=== PATIENT | male | born 1950 | race Caucasian/White ===

== ENCOUNTER 2016-03-28 11:26 | Outpatient (CLI) | payer OTHER ==
--- NOTE | 2016-03-28 13:37 | RAD ---
TWO VIEWS LEFT HIP: Comparison: 01-19-16 Clinical history: Fall two weeks prior with persistent left hip pain. FINDINGS: Ring of osteophytes about the left hip is again seen. No interval acute fracture or dislocation. M oderate left hip joint osteoarthritis is present. There are metallic clips at the midline of the lo w pelvis. IMPRESSION: Stable left hip radiographs, without interval acute fracture or dislocation identified. POS: [facility]
== END 2016-03-28 11:27 | disposition home or self-care (01) ==
LOC: MADRAD 11:26
DX: M25.552 Pain in left hip (principal)

== ENCOUNTER 2016-08-01 10:34 | Outpatient (CLI) | payer MEDICARE, OTHER ==
[2016-08-01 11:16] LABS: Hemoglobin A1c 5.2 % (4.0-6.0)
[2016-08-01 11:17] LABS: #Basophils 0.1 thou/uL (0.0-0.2); #Lymphocytes 2.5 thou/uL (1.20-3.40); #Monocytes 0.6 thou/uL (0.11-0.59); #Neutrophils 6.7 thou/uL (1.40-6.50); %Basophils 1.2 % (0.0-1.0); %Eosinophils 0.1 % (0.0-10.0); %Lymphocytes 25.1 % (21.0-51.0); %Monocytes 6.1 % (0.0-10.0); %Neutrophils 67.5 % (42.0-75.0); Hemoglobin 12.7 g/dL (14.0-18.0); Mean Corpuscular HGB CONC 34.1 g/dL (32.0-36.0); Mean Corpuscular Hemoglobin 31.5 pg (27.0-31.0); Mean Corpuscular Volume 92.5 fl (80.0-94.0); Mean Platelet Volume 8.2 fL (7.4-10.4); Platelet Count 209 thou/uL (130-400); RBC Distribution Width 12.1 % (11.5-14.5); Red Blood Cell (RBC) Count 4.02 mill/uL (4.70-6.10)
[2016-08-01 11:32] LABS: ALT (SGPT) 19 U/L (8-55); AST (SGOT) 20 U/L (5-34); Albumin 4.2 g/dL (3.4-4.8); Alkaline Phosphatase 89 U/L (40-150); Anion Gap 14 mmol/L (10-20); BUN (Urea Nitrogen) 25 mg/dL (8.4-25.7); Bilirubin, Direct 0.2 mg/dL (0.1-0.3); Bilirubin, Total 0.4 mg/dL (0.2-1.2); Calc. Creatinine Clearance 0 mL/min (70-130); Carbon Dioxide 27 mmol/L (23-31); Cardiac Risk 4.3 (Less than 4.5); Chloride 105 mmol/L (98-107); Cholesterol 240 mg/dl (< 200 Desired); Estimated GFR-MDRD 69; Glucose 88 mg/dL (80-115); HDL Cholesterol 56 mg/dL (>60 Neg Risk); LDL Cholesterol, Calculated 150 mg/dL; Protein, Total 7.3 g/dL (5.8-8.1); Sodium 142 mmol/L (136-145); Triglycerides 169 mg/dL (Less than 150)
== END 2016-08-01 10:35 | disposition home or self-care (01) ==
LOC: MADLABBHPM 10:34
PROVIDERS: ATTEND Family Medicine
DX: E11.9 Type 2 diabetes mellitus without complications (principal)
CPT/HCPCS: 36415; 80048; 80061; 80076; 83036; 85025

== ENCOUNTER 2016-08-27 09:21 | Outpatient (CLI) | payer OTHER ==
[2016-08-27 10:07] LABS: ALT (SGPT) 37 U/L (8-55); AST (SGOT) 21 U/L (5-34); Albumin 3.7 g/dL (3.4-4.8); Alkaline Phosphatase 73 U/L (40-150); Anion Gap 15 mmol/L (10-20); BUN (Urea Nitrogen) 18 mg/dL (8.4-25.7); Bilirubin, Total Less than 0.3 mg/dL (0.2-1.2); Calc. Creatinine Clearance 0 mL/min (70-130); Calcium 8.9 mg/dL (7.8-10.44); Carbon Dioxide 25 mmol/L (23-31); Chloride 107 mmol/L (98-107); Estimated GFR-MDRD 63; Globulin 3.7 g/dL (2.4-3.5); Glucose 94 mg/dL (80-115); Potassium 4.6 mmol/L (3.5-5.1); Protein, Total 7.4 g/dL (5.8-8.1); Sodium 142 mmol/L (136-145)
[2016-08-27 10:09] LABS: #Basophils 0.2 thou/uL (0.0-0.2); #Eosinphils 0.6 thou/uL (0.0-0.7); #Lymphocytes 2.2 thou/uL (1.20-3.40); #Monocytes 0.6 thou/uL (0.11-0.59); #Neutrophils 3.4 thou/uL (1.40-6.50); %Basophils 2.7 % (0.0-1.0); %Eosinophils 8.7 % (0.0-10.0); %Lymphocytes 31.5 % (21.0-51.0); %Neutrophils 49.2 % (42.0-75.0); Hemoglobin 11.8 g/dL (14.0-18.0); Mean Corpuscular HGB CONC 33.2 g/dL (32.0-36.0); Mean Corpuscular Hemoglobin 31.4 pg (27.0-31.0); Mean Corpuscular Volume 94.8 fl (80.0-94.0); Mean Platelet Volume 8.3 fL (7.4-10.4); Platelet Count 187 thou/uL (130-400); Red Blood Cell (RBC) Count 3.74 mill/uL (4.70-6.10)
--- NOTE | 2016-08-27 10:47 | RAD ---
LEFT HIP TWO VIEWS HISTORY: Fall on August 23, 2016. Chronic pain since then. COMPARISON: 03/28/2016 FINDINGS: There is moderate degenerative change, similar to the prior examination. The contour of the femoral head is maintained. No fracture. Stable osteophyte formation. IMPRESSION: 1. Stable moderate degenerative change with loss of joint space height and osteophyte formation. 2. No acute fracture. POS: [facility]
[2016-08-27 12:47] LABS: Bilirubin Negative (Negative); Clarity Clear (Clear); Glucose, Urine (Dipstick) Negative (Negative); Leukocyte Negative (Negative); Nitrite Negative (Negative); Protein, Urine (Dipstick) Negative (Neg-Trace); Specific Gravity, Urine 1.015 (1.005-1.030); Urobilinogen 0.2 mg/dL (0.2-1.0); pH, Urine 5.5 (5.0-9.0)
[2016-08-27 12:48] LABS: Bacteria/HPF Rare-Few HPF (None Seen); Blood, Urine Negative (Negative); RBC/HPF 0-3 HPF (0-3); Squamous Epithelial 0-3 HPF (0-3); WBC/HPF 0-3 HPF (0-3)
== END 2016-08-27 09:22 | disposition home or self-care (01) ==
LOC: MADLABBHPM 09:21
PROVIDERS: ATTEND Family Medicine
DX: R63.5 Abnormal weight gain (principal); M25.552 Pain in left hip
CPT/HCPCS: 36415; 80053; 81001; 84443; 85025

== ENCOUNTER 2017-07-25 13:39 | Outpatient (CLI) | payer MEDICARE ==
--- NOTE | 2017-07-25 14:33 | RAD ---
LEFT KNEE 2 VIEWS: HISTORY: Knee pain, followup of tibial plateau fracture. COMPARISON: A 03/01/17 examination. FINDINGS: Medial compartment prosthesis remains in satisfactory position. The lateral tibial plateau fracture which appears slightly depressed is more difficult to visualize indicating some healing. A small madhuri nt effusion is still present. IMPRESSION: Healing lateral tibial plateau fracture. POS: [facility]
== END 2017-07-25 13:40 | disposition home or self-care (01) ==
LOC: MADRAD 13:39
PROVIDERS: ATTEND Orthopaedic Surgery
DX: S82.142D Displaced bicondylar fracture of left tibia, subsequent encounter for closed fracture with routine healing (principal)

== ENCOUNTER 2017-07-26 09:50 | Outpatient (CLI) | payer MEDICARE ==
--- NOTE | 2017-07-26 11:16 | CT ---
CT CERVICAL SPINE WITH CORONAL AND SAGITTAL REFORMATIONS: Date: 07/26/17 HISTORY: Cervical spondylosis. FINDINGS: There is loss of cervical lordosis with mild reversal. Multilevel degenerative changes are seen with associated bilateral neural foraminal stenosis. No fracture, subluxation, or bony destruction is seen . There is suggestion of cord impingement at the C5-6 level. The visualized lung apices are clear. IMPRESSION: Cervical spondylosis with multilevel bilateral neural foraminal stenosis and probable cord impingemen t at C5-6 level. RECOMMEDATION: Further evaluation with MRI or CT myelogram recommended. POS: [facility]
== END 2017-07-26 09:51 | disposition home or self-care (01) ==
LOC: MADCT 09:50
PROVIDERS: ATTEND Family Medicine
DX: M47.812 Spondylosis without myelopathy or radiculopathy, cervical region (principal); M99.81 Other biomechanical lesions of cervical region
CPT/HCPCS: 72125

== ENCOUNTER 2017-08-08 10:36 | Outpatient (CLI) | payer OTHER ==
[2017-08-08 11:14] LABS: Hemoglobin 11.9 g/dL (14.0-18.0); Mean Corpuscular HGB CONC 32.9 g/dL (32.0-36.0); Mean Corpuscular Hemoglobin 29.6 pg (27.0-31.0); Mean Corpuscular Volume 90.1 fL (78.0-98.0); Mean Platelet Volume 8.1 fL (7.4-10.4); Platelet Count 170 thou/uL (130-400); RBC Distribution Width 12.5 % (11.5-14.5); Red Blood Cell (RBC) Count 4.01 mill/uL (4.70-6.10); White Blood Cell (WBC) Count 4.8 thou/uL (4.8-10.8)
[2017-08-08 11:17] LABS: PTT 28.2 SEC (22.9-36.1); Prothrombin Time 13.2 SEC (12.0-14.7)
[2017-08-08 11:25] LABS: Anion Gap 12 mmol/L (10-20); BUN (Urea Nitrogen) 23 mg/dL (8.4-25.7); Calc. Creatinine Clearance 0 mL/min (70-130); Calcium 9.2 mg/dL (7.8-10.44); Carbon Dioxide 28 mmol/L (23-31); Chloride 109 mmol/L (98-107); Estimated GFR-MDRD 67; Glucose 130 mg/dL (80-115); Potassium 3.9 mmol/L (3.5-5.1); Sodium 145 mmol/L (136-145)
== END 2017-08-08 10:37 | disposition home or self-care (01) ==
LOC: MADLAB 10:36
PROVIDERS: ATTEND Neurological Surgery
DX: G89.29 Other chronic pain (principal)
CPT/HCPCS: 36415; 80048; 85027; 85610; 85730

== ENCOUNTER 2017-12-24 09:03 | Outpatient (CLI) | payer MEDICARE, OTHER ==
[2017-12-24 09:58] LABS: #Basophils 0.1 thou/uL (0.0-0.2); #Eosinphils 0.4 thou/uL (0.0-0.7); #Lymphocytes 2.4 thou/uL (1.20-3.40); #Monocytes 0.6 thou/uL (0.11-0.59); #Neutrophils 2.5 thou/uL (1.40-6.50); %Basophils 1.9 % (0.0-1.0); %Lymphocytes 39.8 % (21.0-51.0); %Monocytes 9.5 % (0.0-10.0); %Neutrophils 41.9 % (42.0-75.0); Hemoglobin 13.4 g/dL (14.0-18.0); Mean Corpuscular HGB CONC 32.5 g/dL (32.0-36.0); Mean Corpuscular Hemoglobin 30.7 pg (27.0-31.0); Mean Corpuscular Volume 94.6 fL (78.0-98.0); Mean Platelet Volume 7.9 fL (7.4-10.4); Platelet Count 207 thou/uL (130-400); RBC Distribution Width 12.6 % (11.5-14.5); Red Blood Cell (RBC) Count 4.36 mill/uL (4.70-6.10)
[2017-12-24 10:15] LABS: PTT 29.6 SEC (22.9-36.1); Prothrombin Time 12.8 SEC (12.0-14.7)
[2017-12-24 10:27] LABS: ALT (SGPT) 34 U/L (8-55); AST (SGOT) 25 U/L (5-34); Albumin 4.2 g/dL (3.4-4.8); Alkaline Phosphatase 131 U/L (40-150); Anion Gap 14 mmol/L (10-20); BUN (Urea Nitrogen) 21 mg/dL (8.4-25.7); Bilirubin, Total 0.4 mg/dL (0.2-1.2); Calc. Creatinine Clearance 0 mL/min (70-130); Calcium 9.3 mg/dL (7.8-10.44); Carbon Dioxide 24 mmol/L (23-31); Chloride 108 mmol/L (98-107); Estimated GFR-MDRD 61; Globulin 2.8 g/dL (2.4-3.5); Glucose 93 mg/dL (80-115); Potassium 4.4 mmol/L (3.5-5.1); Sodium 142 mmol/L (136-145)
[2017-12-24 10:39] LABS: Bilirubin Negative (Negative); Blood, Urine Negative (Negative); Clarity Clear (Clear); Glucose, Urine (Dipstick) Negative (Negative); Leukocyte Negative (Negative); Nitrite Negative (Negative); Protein, Urine (Dipstick) Negative (Neg-Trace); Urobilinogen 0.2 mg/dL (0.2-1.0)
--- NOTE | 2017-12-24 10:49 | RAD ---
CHEST TWO VIEWS: History: Pre op Comparison: None FINDINGS: Lungs are clear. No pneumothorax or effusion. Cardiac silhouette and mediastinal contours within norm al limits. Dorsal column stimulator is present. IMPRESSION: No acute intrathoracic abnormality. POS: [facility]
[2017-12-24 11:11] LABS: Bacteria/HPF Rare-Few HPF (None Seen); RBC/HPF 0-3 HPF (0-3); Squamous Epithelial 0-3 HPF (0-3); WBC/HPF 0-3 HPF (0-3)
[2017-12-24 17:07] LABS: Hemoglobin A1c 5.5 % (4.0-6.0)
== END 2017-12-24 09:04 | disposition home or self-care (01) ==
LOC: MADLABBHPM 09:03
PROVIDERS: ATTEND Family Medicine
DX: Z01.818 Encounter for other preprocedural examination (principal); E78.00 Pure hypercholesterolemia, unspecified; E11.9 Type 2 diabetes mellitus without complications; I48.91 Unspecified atrial fibrillation; N39.0 Urinary tract infection, site not specified
CPT/HCPCS: 36415; 71046; 80053; 81001; 83036; 85025; 85610; 85730; 87086

== ENCOUNTER 2018-10-18 13:11 | Emergency (ER) | payer MEDICARE, OTHER ==
--- NOTE | 2018-10-18 13:45 | RAD ---
3 views right ring finger: 10/18/2018 COMPARISON: None HISTORY: Injury, trauma, assess for foreign body FINDINGS: There is diffuse soft tissue swelling involving the fourth finger. There is degenerative ch ted involving the proximal distal interphalangeal. No radiopaque foreign body. No displaced fracture or dislocation. IMPRESSION: Soft tissue swelling. No radiopaque foreign body seen.
[2018-10-18] MEDS ORDERED: Amoxicillin/Potassium Clav 875 MG TAB ONE (13:57)
== END 2018-10-18 14:00 | disposition home or self-care (01) ==
LOC: MADERS 13:11
DX: L03.011 Cellulitis of right finger (principal); E78.5 Hyperlipidemia, unspecified; E78.00 Pure hypercholesterolemia, unspecified; I10 Essential (primary) hypertension; F31.9 Bipolar disorder, unspecified; Z87.891 Personal history of nicotine dependence; Z79.899 Other long term (current) drug therapy

== ENCOUNTER 2018-12-01 13:57 | Outpatient (CLI) | payer MEDICARE ==
--- NOTE | 2018-12-01 14:20 | RAD ---
Right hip:2 views INDICATIONS:Injury with pain COMPARISON:None FINDINGS: Femoral head contour is normal. No evidence of fracture. Minimal degenerative change. No soft tissue abnormality. IMPRESSION: No acute finding.
== END 2018-12-01 13:58 | disposition home or self-care (01) ==
LOC: MADER/OP 13:57
PROVIDERS: ATTEND Family Medicine
DX: M25.551 Pain in right hip (principal)

== ENCOUNTER 2019-08-28 16:14 | Emergency (ER) | payer MEDICARE ==
--- NOTE | 2019-08-28 18:02 | RAD ---
3 views right hand: 08/28/2019 COMPARISON: None HISTORY: Hand pain FINDINGS: There is postoperative hardware of the distal radius. Old fracture of distal radius and uln ar styloid noted. There is degenerative change involving the first interphalangeal joint. There is degenerative change involving the first, second, and third metacarpal phalangeal joint. There is also degenerative change involving the second and third distal interphalangeal joints. No displaced fracture or dislocation. No radiopaque foreign body. Question soft tissue swelling later al to the distal radius IMPRESSION: Chronic findings. No acute fracture or dislocation. Possible soft tissue swelling lateral to the distal right radius.
== END 2019-08-28 18:12 | disposition home or self-care (01) ==
LOC: MADERS 16:14
DX: M19.041 Primary osteoarthritis, right hand (principal); E78.5 Hyperlipidemia, unspecified; E78.00 Pure hypercholesterolemia, unspecified; I10 Essential (primary) hypertension; F31.9 Bipolar disorder, unspecified; Z87.891 Personal history of nicotine dependence; Z79.899 Other long term (current) drug therapy

== ENCOUNTER 2019-11-02 10:04 | Outpatient (CLI) | payer MEDICARE ==
--- NOTE | 2019-11-02 10:23 | RAD ---
EXAM: 4 views of the left elbow HISTORY: Fall a month ago with elbow pain COMPARISON: 07/26/2014 FINDINGS: No elbow effusion is seen. There is no evidence of acute fracture or dislocation. Moderate degenerative changes are seen. Mild diffuse soft tissue swelling is present. 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
== END 2019-11-02 10:05 | disposition home or self-care (01) ==
LOC: MADRAD 10:04
PROVIDERS: ATTEND Family Medicine
DX: M25.522 Pain in left elbow (principal); M19.022 Primary osteoarthritis, left elbow

== ENCOUNTER 2020-09-30 13:15 | Emergency (ER) | payer MEDICARE ==
[2020-09-30] MEDS ORDERED: Lidocaine 1% w/Epinephrine 1:100K 20 ML VIAL ONE (14:14)
[2020-09-30] MEDS ORDERED: Bacitracin 1 PK ONE (15:02)
[2020-09-30] MEDS ORDERED: Boostrix 0.5 ML (Tdap) VIAL ONE (15:13)
== END 2020-09-30 15:15 | disposition home or self-care (01) ==
LOC: MADERS 13:15
DX: S61.210A Laceration without foreign body of right index finger without damage to nail, initial encounter (principal); E78.5 Hyperlipidemia, unspecified; E78.00 Pure hypercholesterolemia, unspecified; I10 Essential (primary) hypertension; Z87.891 Personal history of nicotine dependence; W26.0XXA Contact with knife, initial encounter
CPT/HCPCS: 12001; 90471; 90715

== ENCOUNTER 2020-12-10 12:30 | Emergency (ER) | payer MEDICARE ==
[2020-12-10] MEDS ORDERED: Lidocaine 1% 20 ML MDV ONE (14:33)
[2020-12-10] MEDS ORDERED: Mupirocin 2% Ointment 22 GM Tube ONE (15:02)
== END 2020-12-10 15:05 | disposition home or self-care (01) ==
LOC: MADERS 12:30
DX: L03.012 Cellulitis of left finger (principal); I10 Essential (primary) hypertension; E78.5 Hyperlipidemia, unspecified; E78.00 Pure hypercholesterolemia, unspecified; Z87.891 Personal history of nicotine dependence
CPT/HCPCS: 10060

== ENCOUNTER 2021-02-27 08:53 | Outpatient (CLI) | payer MEDICARE ==
[2021-02-27 09:26] LABS: #Basophils 0.1 thou/uL (0.0-0.2); #Eosinphils 0.6 thou/uL (0.0-0.7); #Lymphocytes 2.4 thou/uL (1.20-3.40); #Monocytes 0.5 thou/uL (0.11-0.59); #Neutrophils 4.7 thou/uL (1.40-6.50); %Basophils 1.4 % (0.0-1.0); %Eosinophils 6.9 % (0.0-10.0); %Lymphocytes 28.5 % (21.0-51.0); %Monocytes 6.5 % (0.0-10.0); %Neutrophils 56.8 % (42.0-75.0); Hemoglobin 14.2 g/dL (14.0-18.0); Mean Corpuscular HGB CONC 32.3 g/dL (32.0-36.0); Mean Corpuscular Volume 92.9 fL (78.0-98.0); Mean Platelet Volume 8.9 fL (7.4-10.4); Platelet Count 192 thou/uL (130-400); RBC Distribution Width 12.5 % (11.5-14.5); Red Blood Cell (RBC) Count 4.75 mill/uL (4.70-6.10); White Blood Cell (WBC) Count 8.4 thou/uL (4.8-10.8)
[2021-02-27 09:37] LABS: ALT (SGPT) 17 U/L (8-55); AST (SGOT) 15 U/L (5-34); Albumin 4.1 g/dL (3.4-4.8); Alkaline Phosphatase 115 U/L (40-110); Anion Gap 11 mmol/L (10-20); BUN (Urea Nitrogen) 22 mg/dL (8.4-25.7); Bilirubin, Total 0.5 mg/dL (0.2-1.2); CRP (Inflammatory) Less than 0.50 mg/dL (= or < 0.5); Calc. Creatinine Clearance 0 mL/min (70-130); Calcium 9.6 mg/dL (7.8-10.44); Carbon Dioxide 26 mmol/L (23-31); Cardiac Risk 3.5 (Less than 4.5); Chloride 110 mmol/L (98-107); Cholesterol 196 mg/dl (< 200 Desired); Glucose 107 mg/dL (80-115); HDL Cholesterol 56 mg/dL (>60 Neg Risk); LDL Cholesterol, Calculated 116 mg/dL; Potassium 4.1 mmol/L (3.5-5.1); Protein, Total 7.1 g/dL (5.8-8.1); Sodium 143 mmol/L (136-145); Triglycerides 120 mg/dL (Less than 150)
== END 2021-02-27 08:54 | disposition home or self-care (01) ==
LOC: MADLAB 08:53
PROVIDERS: ATTEND Family Medicine
DX: Z00.00 Encounter for general adult medical examination without abnormal findings (principal); I10 Essential (primary) hypertension; E78.5 Hyperlipidemia, unspecified; E11.9 Type 2 diabetes mellitus without complications; M86.9 Osteomyelitis, unspecified
CPT/HCPCS: 36415; 80053; 80061; 85025; 86140

== ENCOUNTER 2021-03-07 09:43 | Outpatient (CLI) | payer MEDICARE ==
[2021-03-07 11:26] LABS: #Eosinphils 0.4 thou/uL (0.0-0.7); #Lymphocytes 1.7 thou/uL (1.20-3.40); #Monocytes 0.5 thou/uL (0.11-0.59); #Neutrophils 2.8 thou/uL (1.40-6.50); %Basophils 0.9 % (0.0-1.0); %Eosinophils 6.9 % (0.0-10.0); %Lymphocytes 31.9 % (21.0-51.0); %Monocytes 8.4 % (0.0-10.0); Hemoglobin 13.4 g/dL (14.0-18.0); Mean Corpuscular HGB CONC 32.1 g/dL (32.0-36.0); Mean Corpuscular Hemoglobin 30.1 pg (27.0-31.0); Mean Platelet Volume 8.2 fL (7.4-10.4); Platelet Count 183 thou/uL (130-400); RBC Distribution Width 12.6 % (11.5-14.5); Red Blood Cell (RBC) Count 4.45 mill/uL (4.70-6.10); White Blood Cell (WBC) Count 5.5 thou/uL (4.8-10.8)
[2021-03-07 11:40] LABS: Anion Gap 12 mmol/L (10-20); BUN (Urea Nitrogen) 15 mg/dL (8.4-25.7); CRP (Inflammatory) Less than 0.50 mg/dL (= or < 0.5); Calc. Creatinine Clearance 0 mL/min (70-130); Calcium 9.1 mg/dL (7.8-10.44); Carbon Dioxide 28 mmol/L (23-31); Chloride 107 mmol/L (98-107); Glucose 113 mg/dL (80-115); Potassium 3.6 mmol/L (3.5-5.1); Sodium 143 mmol/L (136-145)
== END 2021-03-07 09:44 | disposition home or self-care (01) ==
LOC: MADLAB 09:43
PROVIDERS: ATTEND Family Medicine
DX: M86.9 Osteomyelitis, unspecified (principal)
CPT/HCPCS: 36415; 80048; 85025; 86140

== ENCOUNTER 2021-09-04 12:11 | Outpatient (CLI) | payer MEDICARE | END 2021-09-04 12:12 | disposition home or self-care (01) | LOC: MADLAB 12:11 | PROVIDERS: ATTEND Family Medicine | DX: M25.551 Pain in right hip (principal) ==

== ENCOUNTER 2022-02-01 15:10 | Outpatient (CLI) | payer OTHER | END 2022-02-01 15:11 | disposition home or self-care (01) | LOC: MADRAD 15:10 | PROVIDERS: ATTEND Internal Medicine | DX: M89.8X6 Other specified disorders of bone, lower leg (principal); M79.89 Other specified soft tissue disorders; Z89.511 Acquired absence of right leg below knee ==

== ENCOUNTER 2023-03-09 16:13 | Emergency (ER) | payer MEDICARE ==
[2023-03-09] MEDS ORDERED: Boostrix 0.5 ML (Tdap) VIAL (>/=7 yrs of age) ONE (17:15)
[2023-03-09] MEDS ORDERED: Lidocaine 1% (PF) 30 ML VIAL ONE (18:09)
[2023-03-09] MEDS ORDERED: Bacitracin 1 PK ONE (19:06)
== END 2023-03-09 19:19 | disposition home or self-care (01) ==
LOC: MADERS 16:13
DX: S61.411A Laceration without foreign body of right hand, initial encounter (principal); E78.00 Pure hypercholesterolemia, unspecified; I10 Essential (primary) hypertension; W26.0XXA Contact with knife, initial encounter; Z23 Encounter for immunization; Z87.891 Personal history of nicotine dependence; Z79.899 Other long term (current) drug therapy
CPT/HCPCS: 12004; 90471; 90715; J2001

== ENCOUNTER 2023-12-30 10:36 | Outpatient (CLI) | payer OTHER | END 2023-12-30 10:37 | disposition home or self-care (01) | LOC: MADRAD 10:36 | PROVIDERS: ATTEND Internal Medicine | DX: M25.532 Pain in left wrist (principal); M19.032 Primary osteoarthritis, left wrist ==

== ENCOUNTER 2025-01-18 11:27 | Outpatient (CLI) | payer MEDICARE ==
[2025-01-18 11:43] LABS: #Basophils 0.1 thou/uL (0.0-0.2); #Eosinophils 0.1 thou/uL (0.0-0.7); #Lymphocytes 2.1 thou/uL (1.20-3.40); #Monocytes 0.4 thou/uL (0.11-0.59); #Neutrophils 3.8 thou/uL (1.40-6.50); %Basophils 0.9 % (0.0-1.0); %Eosinophils 1.5 % (0.0-10.0); %Lymphocytes 31.7 % (21.0-51.0); %Monocytes 6.6 % (0.0-10.0); %Neutrophils 59.2 % (42.0-75.0); Hematocrit 43.1 % (42.0-52.0); Hemoglobin 13.9 g/dL (14.0-18.0); Mean Corpuscular Hemoglobin 30.6 pg (27.0-31.0); Mean Corpuscular Volume 94.7 fl (78.0-98.0); Platelet Count 209 10x3/uL (130-400); Red Blood Cell (RBC) Count 4.55 mill/uL (4.70-6.10); White Blood Cell (WBC) Count 6.5 10x3/uL (4.8-10.8)
[2025-01-18 12:04] LABS: ALT (SGPT) 45 U/L (Less than 45); AST (SGOT) 29 U/L (11-34); Albumin 4.2 g/dL (3.1-4.5); Alkaline Phosphatase 79 U/L (40-110); Anion Gap 17 mmol/L (10-20); BUN (Urea Nitrogen) 16 mg/dL (8.4-25.7); Bilirubin, Total 0.8 mg/dL (0.3-1.2); Calc. Creatinine Clearance 0 mL/min (70-130); Calcium 9.3 mg/dL (7.8-10.44); Carbon Dioxide 24 mmol/L (23-31); Cardiac Risk 3.3 (Less than 4.5); Chloride 105 mmol/L (98-107); Cholesterol 139 mg/dl (< 200 Desired); Globulin 2.7 g/dL (2.4-3.5); Glucose 110 mg/dL (83-110); HDL Cholesterol 42 mg/dL (>60 Neg Risk); LDL Cholesterol, Calculated 64 mg/dL; Magnesium 2.2 mg/dL (1.6-2.6); Potassium 4.0 mmol/L (3.5-5.1); Sodium 142 mmol/L (136-145); Triglycerides 164 mg/dL (Less than 150)
== END 2025-01-18 11:28 | disposition home or self-care (01) ==
LOC: MADLAB 11:27
PROVIDERS: ATTEND Internal Medicine
DX: I10 Essential (primary) hypertension (principal); R73.03 Prediabetes
CPT/HCPCS: 36415; 80053; 80061; 83036; 83735; 84443; 85025